=== PATIENT | male | born 1970 | race Caucasian/White ===

== ENCOUNTER 2016-10-10 13:45 | Observation (INO) | payer OTHER ==
[2016-10-10] VITALS (12 sets, daily range): BP systolic 115–136; BP diastolic 68–88; PULSE 63–97; RESP 16–20; O2SAT 95–100
[~2016-10-10] VITALS: Ht 188 cm; Wt 101.6 kg
[~2016-10-10 13:45] MED LIST: Dexamethasone 4 mg/mL Inj ONE; Glycopyrrolate 0.2 MG/ML 1mL Inj ONE; Neostigmine 1 mg/mL 10 mL Inj ONE; Ondansetron 2 mg/mL 2 mL Inj ONE; Propofol 10,000 mCg/mL 20 mL Inj ONE; Remifentanil 1 mg/3 mL Inj ONE; Rocuronium 10 mg/mL 5 mL Inj ONE; fentaNYL-PF 50 mCg/mL 2 mL Inj ONE
[2016-10-10] MEDS ORDERED: Lactated Ringer's 1,000 ML IV ONE ×2 (14:17→15:16)
--- NOTE | 2016-10-10 14:17 | PCM.HPANE ---
Patient Data Surgeon Admitting Provider: Attending Provider:Lexx Boyd MD Primary Care Physician:Dasha Other Provider:Julius Carolina Anesthesia Reason for Visit Lap Lorri Ht/WT & BMI Body Mass Index Allergies Coded Allergies: Penicillins (Verified Allergy, Intermediate, RASH, 10/10/16) Past Anesthesia History Anesthesia History: Denies:: Abnormal Airway, Difficult Intubation Diabetes History Hx Diabetes?: No MRSA MRSA: No Medications Hypertension Medication: No Home Meds Incl Beta Gema: No Active Scripts Polyethylene Glycol 3350 (Miralax)17 Gm Powd.pack17 Gm PO DAILY PRN For Constipation #1 BOTTLE Take as needed to promote smooth bowel movements while using narcotic pain meds. Hold for liquid stools. Prov:Alex Miranda MD 10/11/16 oxyCODONE 5 Mg Tablet5 Mg PO Q6 hours PRN For Moderate Pain #15 TABLET Prov:Alex Miranda MD 10/11/16 [Acetaminophen] (Tylenol)325 MG TABLET No Conflict [id number] Mg PO Q6H #30 Take every 6 hours to help control any pain. Prov:Alex Miranda MD 10/11/16 History History of ENT Problems?: No HEENT History: Denies:: Abnormal Airway Cataracts Difficult Intubation Dysphagia Glaucoma Hearing Problem Sinus Problem TMJ Denture Type: None Teeth Condition: Within Normal Limits Hx of Heart Problems?: No Cardiovascular History: Denies:: AICD Abdominal Aortic Aneurism Atrial Fibrillation Cardiac Surgery Chest Pain Congestive Heart Failure Coronary Artery Disease Edema Heart Murmur Hypertension Irregular Heartbeat Pacemaker Peripheral Vascular Rheumatic Fever Thrombophlebitis Valvular Heart Disease Hx of Respiratory Problem?: No Respiratory History: Denies:: Asthma COPD Chest Surgery Cough Dyspnea Emphysema Hemoptysis Oxygen Administration Pneumonia Pulmonary Embolism Tuberculosis Use of C-PAP Machine Use of Inhalers / NEBS Hx Neurologic Problems?: No Neurological History: Denies:: Alzheimer's Disease CVA Dementia Dizziness Headaches Multiple Sclerosis Parkinson's Disease Peripheral Neuropathy Seizures TIA Hx of GI Problems?: Yes Gastrointestinal History: Positive for:: Gall Bladder Disease Hx of Problems?: No HX of Peritoneal Dialysis: No Male Hx: Denies:: Prostate Problems Scrotal Mass Testicular Surgery Skin History: Denies:: History Skin Disorders? Pressure Ulcers Hx Musculoskeletal Problems?: No Hx of Psycho/Social Problems?: No Hx Surgeries?: Yes Hx Any Other Health Problems?: No Hx Diabetes: No Stop/Bang Treated for Sleep Apnea?: No Do You Have a CPAP Machine?: No EVELINA Risk Assessment: Low Risk, <3 Yes Risk Assessment Category Category 1A: Patient has history of documented sleep apnea, and HAS NOT received any narcotic, sedative or anesthesia administration during this stay. Category 1B: Patient has history of documented sleep apnea, and HAS received any narcotic , sedative or anesthesia administration during this stay Category 2: Patient has SUSPECTED Obstructive Sleep Apnea, and HAS received any narcotic , sedative or anesthesia administration during this stay. Category 3: Patient has SUSPECTED Obstructive Sleep Apnea and HAS NOT received narcotic, sedative or anesthesia administration during this stay. Category 4: Outpatient in Procedural Areas with known sleep apnea or who screen positive for High Risk via the STOP/BANG questionnaire. Exam Exam General Appearance: Alert, Oriented X3, Cooperative, No Acute Distress HEENT/AIRWAY: MP 2 Lungs: Clear to Auscultation, Normal Air Movement Heart: Exam Unremarkable, Regular Rate/Rhythm, No Murmurs/Rubs/Gallops Plan Impression Patient chart reviewed, patient interviewed and anesthestic plan with risks, benefits, and alternatives discussed, and informed consent obtained. ASA Physical Status: ASA2 Mod Systemic Disease Anesthetic Plan: GA Bene/Risks/Altern/Consents: Yes HP Complete Prior to Induction: Yes Ashish Sheikh MD Oct 10, 2016 14:17
[2016-10-10] MEDS ORDERED: diphenhydrAMINE 25 mg Capsule PO PRN (15:30)
[2016-10-10] MEDS ORDERED: Ondansetron 2 mg/mL 2 mL Inj IVPUSH PRN ×3 (15:30→19:30)
[2016-10-10] MEDS ORDERED: CeFAZolin 2 Gm/50 mL D5W Duplex Bag IV ONE (15:51)
[2016-10-10] MEDS: CeFAZolin Inj 2 GM in IV Premix 1 EACH IV ONE ×2 (16:15→16:46)
[2016-10-10] MEDS ORDERED: Lactated Ringer's 500 ML IV PRN (16:29)
[2016-10-10] MEDS ORDERED: Lactated Ringer's 1,000 ML IV SCH (16:29)
--- NOTE | 2016-10-10 16:29 | PCM.HPANE ---
Patient Data Surgeon Admitting Provider: Attending Provider:Lexx Boyd MD Primary Care Physician:Dasha Other Provider:Julius Carolina Anesthesia Reason for Visit Lap Lorri Ht/WT & BMI Body Mass Index Allergies Coded Allergies: Penicillins (Verified Allergy, Intermediate, RASH, 10/10/16) Past Anesthesia History Anesthesia History: Denies:: Abnormal Airway, Difficult Intubation Diabetes History Hx Diabetes?: No MRSA MRSA: No Medications Hypertension Medication: No Home Meds Incl Beta Gema: No History History of ENT Problems?: No HEENT History: Denies:: Abnormal Airway Cataracts Difficult Intubation Dysphagia Glaucoma Hearing Problem Sinus Problem TMJ Denture Type: None Teeth Condition: Within Normal Limits Hx of Heart Problems?: No Cardiovascular History: Denies:: AICD Abdominal Aortic Aneurism Atrial Fibrillation Cardiac Surgery Chest Pain Congestive Heart Failure Coronary Artery Disease Edema Heart Murmur Hypertension Irregular Heartbeat Pacemaker Peripheral Vascular Rheumatic Fever Thrombophlebitis Valvular Heart Disease Hx of Respiratory Problem?: No Respiratory History: Denies:: Asthma COPD Chest Surgery Cough Dyspnea Emphysema Hemoptysis Oxygen Administration Pneumonia Pulmonary Embolism Tuberculosis Use of C-PAP Machine Use of Inhalers / NEBS Hx Neurologic Problems?: No Neurological History: Denies:: Alzheimer's Disease CVA Dementia Dizziness Headaches Multiple Sclerosis Parkinson's Disease Peripheral Neuropathy Seizures TIA Hx of GI Problems?: Yes Hx of Problems?: No HX of Peritoneal Dialysis: No Male Hx: Denies:: Prostate Problems Scrotal Mass Testicular Surgery Skin History: Denies:: History Skin Disorders? Pressure Ulcers Hx Musculoskeletal Problems?: No Hx of Psycho/Social Problems?: No Hx Surgeries?: No Hx Diabetes: No Stop/Bang Treated for Sleep Apnea?: No Do You Have a CPAP Machine?: No Risk Assessment Category Category 1A: Patient has history of documented sleep apnea, and HAS NOT received any narcotic, sedative or anesthesia administration during this stay. Category 1B: Patient has history of documented sleep apnea, and HAS received any narcotic , sedative or anesthesia administration during this stay Category 2: Patient has SUSPECTED Obstructive Sleep Apnea, and HAS received any narcotic , sedative or anesthesia administration during this stay. Category 3: Patient has SUSPECTED Obstructive Sleep Apnea and HAS NOT received narcotic, sedative or anesthesia administration during this stay. Category 4: Outpatient in Procedural Areas with known sleep apnea or who screen positive for High Risk via the STOP/BANG questionnaire. Exam Exam General Appearance: Alert, Oriented X3, Cooperative, No Acute Distress HEENT/AIRWAY: MP 2 Lungs: Clear to Auscultation, Normal Air Movement Heart: Exam Unremarkable, Regular Rate/Rhythm, No Murmurs/Rubs/Gallops Plan Impression Patient chart reviewed, patient interviewed and anesthestic plan with risks, benefits, and alternatives discussed, and informed consent obtained. NPO per Anesth. Guidelines: Yes ASA Physical Status: ASA2 Mod Systemic Disease Anesthetic Plan: GA Bene/Risks/Altern/Consents: Yes HP Complete Prior to Induction: Yes Other Discussed GETA. All questions were answered and he agrees to proceed. Tunde Albarran MD Oct 10, 2016 15:27
[2016-10-10] MEDS ORDERED: Dexamethasone 4 mg/mL Inj IVPUSH PRN (16:30)
[2016-10-10] MEDS ORDERED: Phenylephrine 10,000 mCg/mL Inj IVPUSH PRN (16:30)
[2016-10-10] MEDS ORDERED: fentaNYL-PF 50 mCg/mL 2 mL Inj IVPUSH PRN (16:30)
[2016-10-10] MEDS ORDERED: MetoCLOpramide 5 mg/mL 2 mL Inj IVPUSH PRN ×2 (16:30→19:30)
[2016-10-10] MEDS ORDERED: HYDROmorphone 1 mg/mL Inj IVPUSH PRN ×2 (16:30→19:30)
[2016-10-10] MEDS ORDERED: EPHEDrine Sulfate 50 mg/mL Inj IVPUSH PRN (16:30)
--- NOTE | 2016-10-10 16:57 | HP ---
[address] [address] HISTORY AND PHYSICAL PATIENT: HOLA VELASQUEZ : 1970 MR#: [id number] ADMIT: 10/10/2016 JOB ID: [id number] CHIEF COMPLAINT/IDENTIFICATION: A 45-year-old man with acute cholecystitis. HISTORY OF PRESENT ILLNESS: The patient was awakened by right upper quadrant pain around one this morning. In retrospect he has had biliary colic type symptoms in the past. There is no history of jaundice, acholic stool, nor tea-colored urine. The pain has been persistent and he went to urgent care where an ultrasound demonstrates findings consistent with cholecystitis. Otherwise GI review of systems is negative. PAST MEDICAL HISTORY: Eye surgery as a child. MEDICATIONS: None. ALLERGIES: PENICILLIN (REACTION ONLY FOR RASH A CHILD). FAMILY HISTORY: Breast cancer. REVIEW OF SYSTEMS: Negative after complete review of systems. PHYSICAL EXAMINATION: Vital signs recorded in the chart. He is uncomfortable, in no acute distress. Lungs are clear. Heart sounds are regular. Abdomen is soft, with right upper quadrant tenderness to palpation, but no real Wright sign. No groin hernias. Extremities are without edema. Neurologically he is intact. IMAGING: Abdominal ultrasound demonstrated sludge and stones in the gallbladder with a thickened gallbladder wall at 4.2 mm. LABORATORY DATA: White count is 14. Liver function tests are normal. Other labs are unremarkable, except for mild elevation of his blood sugar. IMPRESSION AND PLAN: Probable cholecystitis. This is somewhat mild. I have offered him the opportunity of going onto oral antibiotics and being placed on the elective schedule or of being admitted for surgery today. As he has ongoing pain despite pain medications given in Urgent Care, he would like to proceed, and I think that this and the fact that he has an elevated white count suggest he has acute cholecystitis. We will get him onto the OR schedule. He last had something to eat last night. I will give him perioperative Ancef as his penicillin allergy was distant the reaction seemed relatively mild.
[2016-10-10] MEDS ORDERED: Bupivacaine-MPF 0.5% W/EPI 30 mL Inj INJ ONE (17:01)
--- NOTE | 2016-10-10 19:22 | PCM.ANEP1 ---
Post Anesthesia PACU Phase 1 Assessment Vital Signs Vital Signs Date Time Temp Pulse Resp B/P Pulse Ox O2 Delivery O2 Flow Rate FiO2 10/10/16 15:25 36.8 97 16 136/88 99 Room Air Anesthetic Administered: GA Level of Alertness: Sleepy, easy to arouse WALTER's with Equal Strength: Yes Pain: No Nausea or Vomiting: No CV Function & Hydration Stable: Yes Airway Device: Oxygen Delivery: Simple Mask Lungs: Clear to Auscultation, Normal Air Movement Dermatome Level: Full Sensation PACU Phase 2 Assessment Complications: No Follow up Care: N/A Patient Instructions Provided: N/A Tunde Albarran MD Oct 10, 2016 19:22
[2016-10-10] MEDS: D5 0.45% NaCl + KCl 20 mEq/L 1,000 ML IV SCH (19:26)
[2016-10-10] MEDS ORDERED: Polyethylene Glycol (PEG) 17 Gm Powder PO PRN (19:30)
--- NOTE | 2016-10-10 19:46 | OP ---
[address] [address] OPERATIVE REPORT PATIENT: HOLA VELASQUEZ : 1970 MR#: [id number] ADMIT: 10/10/2016 JOB ID: [id number] DATE OF SURGERY: 10/10/2016 PREOPERATIVE DIAGNOSIS(ES): Acute cholecystitis. POSTOPERATIVE DIAGNOSIS(ES): Acute cholecystitis. PROCEDURE: Laparoscopic cholecystectomy, with attempted intraoperative cholangiogram. SURGEON: Lexx Boyd MD and Marco Miranda TRUCK BENCH MECHANIC: Miguel Briones MS3 INDICATIONS: A 45-year-old man who presents with signs and symptoms consistent with acute cholecystitis. FINDINGS: 1. Construction Administrator was medically necessary for camera operation and retraction. 2. The patient had acute on chronic cholecystitis. 3. Cholangiogram was abandoned as described below. PROCEDURE: The patient brought to the operating room. SCOAP protocol was followed. General anesthetic was administered. He received perioperative Ancef without cross-reactivity to his reported penicillin allergy. Surgical time-out was performed. The abdomen was prepped and draped in sterile fashion. We obtained access with a Veress needle. CO2 pneumoperitoneum was established. We placed four ports in standard fashion. The gallbladder was clearly inflamed. We had to decompress the gallbladder with a needle to enable ourselves to grasp and retract it cephalad. There was a fair amount of chronic and acute inflammation around the infundibulum. We cleared this out with cautery and blunt dissection. The gallbladder was relatively intrahepatic and there was a great deal of inflammation. We stayed on the gallbladder. We developed the window of the triangle of Calot, staying right on the gallbladder, and identified where the cystic artery entered the gallbladder. We did get a hole in the gallbladder and spilled a few small stones, most of which were picked up. In developing the exposure of the liver plate, we also did make another hole in the gallbladder and spilled some stones, most of which were immediately recovered, though some would be later recovered at the end of the procedure. Having identified the cystic duct going into the gallbladder, I did have some concerns about a possible short cystic duct given the inflammation of the triangle of Calot. We attempted a cholangiogram, going through a hole that had been made at the cystic duct/gallbladder junction, and we did expand this; however, we were unable to pass the catheter into the cystic duct despite several efforts. At this point, because of my concern about a possible short cystic duct and the overall clinical picture, I decided to abandon the cholangiogram. We placed two clips on the patient's side of the cystic duct, taking care to relax tension on the infundibulum as we placed our clips, to avoid possibly impinging on the common duct. We now divided the cystic duct with scissors and used electrocautery to stay right on the gallbladder and take it out of the liver bed. The gallbladder was relatively intrahepatic. As we removed the gallbladder there was spillage of a dozen or more stones which were recognized after we got the gallbladder out of liver bed and placed in a bag and isolated. We then irrigated with a liter of saline, removing most of the stones that we could see. We now removed the gallbladder from the abdomen in the bag without any wound contamination. We replaced our ports and proceeded with further irrigation with another 2 L and this allowed us to flush out all stones from behind the liver and in the subhepatic space, retrieving them all with a gallstone scoop, and eventually irrigation was clear. Having removed all stone debris, we checked our liver bed again. Hemostasis was good. There was no evidence of a bile leak. I elected not to leave a drain. Ports were removed after removing all of our irrigation. Wounds were closed with absorbable suture, including a [id number] 0-Vicryl at the subxiphoid 10 mm port, and the skin was closed with absorbable suture. At the time of this dictation, the patient is awakened from anesthesia and will be extubated. The plan will be to obtain liver function tests tomorrow and if his bilirubin is rising we will get an MRCP. The findings were discussed with the patient's .
[2016-10-11 00:21] VITALS: BP 117/74; PULSE 60; RESP 16; O2SAT 96
--- NOTE | 2016-10-11 03:11 | NUR ---
PO Transfer Patient able to slide into bed. Oriented to room, and call light. Family at bed side. Denies pain at that time, 2/ at this time. Motrin given, patient instructed to report any increase in pain before out of control. Sleeping comfortably at this time.
[2016-10-11] MEDS: D5 0.45% NaCl + KCl 20 mEq/L 1,000 ML IV SCH (03:26)
[2016-10-11 07:18] LABS: BASOPHILS % (AUTO) 0.1 % (0-3); EOSINOPHILS % (AUTO) 0 % (0-5); MONOCYTES % (AUTO) 9.8 % (4-12); Mean Corpuscular Hemoglobin 31.6 pg (27.0-35.0); Mean Corpuscular Volume 93.1 fL (81-100); NEUTROPHILS % (AUTO) 79.2 % (40-74); Platelet Count 253 bil/L (150-400)
[2016-10-11 07:44] VITALS: BP 101/60; PULSE 54; RESP 18; O2SAT 99
[2016-10-11 09:13] VITALS: PULSE 58; RESP 16; O2SAT 97
--- NOTE | 2016-10-11 09:41 | PCM.DISURG ---
Surgical Discharge Instruction Date of Service Oct 11, 2016 Dates of Hospitalization Date of Hospital Admission Oct 10, 2016 at 20:21 Providers Admitting Physician: Lexx Boyd MD Primary Care Physician: Nopcp Attending Physician: Lexx Boyd MD Discharge Diagnosis Post Operative diagnosis Acute calculous cholecystitis. Diet Discharge Diet: No restrictions Activity Discharge Activity-General: Be up and about, Activity as pain allows, No lifting >15 pounds for 2 weeks, No driving while taking narcotic Dressing and Incisional Care Dressing Care: Allow Steri Stripes to fall off, Remove outer dressing after 24 hrs Hygiene: May shower after (24 hours), DO NOT soak incision under water, NO bathtub, hot tub or whirlpool Follow Up Plan Follow Up Plan Follow up in the general surgery clinic in 2 weeks. Call to ensure you have an appointment. We will repeat your labs at that time. Call at any time with questions or concerns and please let us know if you are not feeling well. Call your provider for: Fever, Chills, Increasing abdominal pain, Nausea, Vomiting, Wound redness, Discharge @ incision, pus discharge Alex Miranda MD Oct 11, 2016 09:41
[2016-10-11] MEDS ORDERED: Acetaminophen PO (09:43)
[2016-10-11] MEDS ORDERED: OXYC5TAB72 PO (09:43)
[2016-10-11] MEDS ORDERED: POLY17PO6 PO (09:43)
--- NOTE | 2016-10-11 10:27 | PCM.DC.SUR ---
Discharge Summary Date of Service: Oct 11, 2016 Date of Hospital Admission: Oct 10, 2016 at 20:21 Date of Discharge: October 11, 2016 Diagnosis at Time of Discharge Acute calculous cholecystitis Problems: Operation Laparoscopic cholecystectomy. Brief History and Physical: This is a 45 year old male who presented with 24 hours of RUQ, elevated WBC of 14k, and an abdominal US demonstrating Abdominal sludge and stones in the gallbladder with a thickened gallbladder wall at 4.2 mm. This is consistent with acute calculous cholecystitis and he was therefore given the option to proceed to the operating room for a laparoscopic cholecystectomy. After a discussion of the risks, benefits, and alternatives, he elected to move towards surgery. Hospital Course: The patient underwent successful and uncomplicated laparosocpic cholecystectomy. Following this, he recovered from a general anesthetic in the PACU and was then transferred to the general surgery floor for intensive nursing care and observation overnight. His diet was advanced with excellent tolerance and his pain was controlled on a PO only multimodal pain regimen. On the morning of POD#1, his WBC had downtrended to 11k and his LFTs were normal with a T.bili of 0.2. He denied abdominal pain, nausea, vomiting, or other concern. At this point, he was deemed to have met or exceeded all criteria for a safe discharge to home. The patient and his were given strict return precautions and expressed their understanding. Disposition: Home Follow-up Plan: In the general surgery clinic in 2 weeks. ([Acetaminophen]) 325 MG TABLET 650 MG PO Q6H Take every 6 hours to help control any pain. Polyethylene Glycol 3350 (Miralax) 17 Gm Powd.pack 17 GM PO DAILY PRN PRN For Constipation Take as needed to promote smooth bowel movements while using narcotic pain meds. Hold for liquid stools. oxyCODONE (oxyCODONE) 5 Mg Tablet 5 MG PO Q6 hours PRN PRN For Moderate Pain Alex Miranda MD Oct 11, 2016 10:27
--- NOTE | 2016-10-11 12:23 | NUR ---
Discharge note- Patient denies increase incisional pain. Encouraged patient to take pain med prior to discharge to prevent discomfort. Tolerating diet and fluids well without nausea. Discharged to home with family and personal belongings.
--- NOTE | 2016-10-11 13:26 | NUR ---
Social Work: Screening/Discharge/Multidisciplinary Rounds D: EMR reviewed. Pt is a 45 y/o male admitted for lap fatuma per H&P. Pt's insurance is [employer]. KWAN is sister Naye Martin [phone]. Per multidisciplinary rounds, no SW needs identified. Pt medically stable for discharge home today via POV. No SW needs identified. No MD orders received. A: Pt who is independent at baseline P: Pt discharged home with family via POV. No SW needs identified. No MD orders received. GRACY Jefferson
--- NOTE | 2016-10-14 09:54 | PATH ---
SURGICAL PATHOLOGY Attending Physician:Lexx Boyd MD CASE STATUS: Signed Out PATIENT NAME: HOLA VELASQUEZ PID: [id number] : 1970 DATE COLLECTED:10/10/2016 00:00 SPECIMEN: Gallbladder CLINICAL HISTORY: CHOLECYSTITIS 1). GALLBLADDER WITH CONTENTS FINAL DIAGNOSIS: Gallbladder and Contents: - Cholelithiasis. - Gallbladder with denuded mucosa. - No significant acute and chronic inflammation. - Negative for dysplasia and malignancy. ICD10: K80. GROSS DESCRIPTION: The specimen is received in formalin, labeled with the patient's name, sublabeled as gallbladder and contents, and consists of an opened gallbladder (length-10.7 cm, diameter-3.2 cm) with a patent cystic duct. No lymph nodes are identified. The serosa is baker-pink smooth and shiny. The mucosa is rizo-green smooth and flat. The wall is up to 0.2 cm thick. The contents are also submitted and consist of multiple bright yellow solid firm multifaceted calculi (9.5 x 7.5 x 1.3 cm in aggregate, ranging 0.1 x 0.1-0.1 cm-0.7 x 0.6 x 0.5 cm) with cadence crystalline cut surfaces. No nodules, masses or lesions are identified. Section code: (A) gallbladder, cystic duct resection margin, 2 serial sections from the body, longitudinal section from the fundus. 10/11/16 ICD-9 CODES: CPT CODES: 1: 72017 Electronically Signed Out Brian Sterling MD [facility] Pathology [facility] [address], [place] [address] Technical component performed at [facility], [facility] [address], [place], [address]
== END 2016-10-11 11:47 | disposition home or self-care (01) ==
LOC: SAS 13:45 → OSC 20:21 → INTOOBSV 20:21
PROVIDERS: ADMIT Surgery; ATTEND Surgery
DX: K80.20 Calculus of gallbladder without cholecystitis without obstruction (principal)
CPT/HCPCS: 36415; 47563; 80053; 85025; 94640; G0378; G0379; J0690; J1100; J2250; J2405; J2710; J3010; J7120

== ENCOUNTER 2016-10-17 14:43 | Day surgery (SDC) | payer OTHER ==
[~2016-10-17] VITALS: Ht 188 cm; Wt 97.0 kg
[~2016-10-17 14:43] MED LIST changes: +Acetaminophen PO; -Dexamethasone 4 mg/mL Inj ONE; -Glycopyrrolate 0.2 MG/ML 1mL Inj ONE; -Neostigmine 1 mg/mL 10 mL Inj ONE; +OXYC5TAB72 PO; -Ondansetron 2 mg/mL 2 mL Inj ONE; +POLY17PO6 PO; -Propofol 10,000 mCg/mL 20 mL Inj ONE; -Remifentanil 1 mg/3 mL Inj ONE; -Rocuronium 10 mg/mL 5 mL Inj ONE; -fentaNYL-PF 50 mCg/mL 2 mL Inj ONE
[2016-10-17] MEDS ORDERED: fentaNYL-PF 50 mCg/mL 2 mL Inj ONE (14:44)
[2016-10-17] MEDS ORDERED: Propofol 10,000 mCg/mL 20 mL Inj ONE (14:44)
[2016-10-17 16:19] VITALS: BP 119/78; PULSE 85; RESP 20; O2SAT 96
[2016-10-17] MEDS ORDERED: Lactated Ringer's 1,000 ML IV ONE ×2 (16:58)
[2016-10-17 17:42] VITALS: BP 112/77; PULSE 71; RESP 16; O2SAT 95
--- NOTE | 2016-10-17 17:45 | PCM.ANEP1 ---
Post Anesthesia PACU Phase 1 Assessment Vital Signs Vital Signs Date Time Temp Pulse Resp B/P Pulse Ox O2 Delivery O2 Flow Rate FiO2 10/17/16 16:19 37 85 20 119/78 96 Room Air Anesthetic Administered: MAC Level of Alertness: Awake, talking WALTER's with Equal Strength: Yes Pain: No Nausea or Vomiting: No CV Function & Hydration Stable: Yes Airway Device: Oxygen Delivery: Room Air Lungs: Clear to Auscultation Dermatome Level: Full Sensation PACU Phase 2 Assessment Complications: No Follow up Care: N/A Patient Instructions Provided: N/A Tunde Albarran MD Oct 17, 2016 17:45
[2016-10-17] MEDS ORDERED: Lactated Ringer's 1,000 ML IV SCH (17:46)
--- NOTE | 2016-10-17 17:46 | PCM.HPANE ---
Patient Data Surgeon Admitting Provider: Attending Provider:Sabino Petty MD Primary Care Physician:Dasha Other Provider:Julius Carolina Anesthesia Reason for Visit Common Bile Duct Stone Ht/WT & BMI Height (Feet): 6 Height (Inches): 2 Weight (Kilograms): 97 Body Mass Index 27.00 Allergies Coded Allergies: Penicillins (Verified Allergy, Intermediate, RASH, 10/10/16) Past Anesthesia History Anesthesia History: Denies:: Abnormal Airway, Anesthesia Reactions, Difficult Intubation, Fam Anesthesia Reaction, Fam Malignant Hypertherm, Malignant Hyperthermia Diabetes History Hx Diabetes?: No MRSA MRSA: No Medications Active Scripts Polyethylene Glycol 3350 (Miralax)17 Gm Powd.pack17 Gm PO DAILY PRN For Constipation #1 BOTTLE Take as needed to promote smooth bowel movements while using narcotic pain meds. Hold for liquid stools. Prov:Alex Miranda MD 10/11/16 oxyCODONE 5 Mg Tablet5 Mg PO Q6 hours PRN For Moderate Pain #15 TABLET Prov:Alex Miranda MD 10/11/16 [Acetaminophen] (Tylenol)325 MG TABLET No Conflict Usmse210 Mg PO Q6H #30 Take every 6 hours to help control any pain. Prov:Alex Miranda MD 10/11/16 History History of ENT Problems?: No HEENT History: Denies:: Abnormal Airway Cataracts Difficult Intubation Dysphagia Hearing Problem Sinus Problem TMJ Denture Type: None Teeth Condition: Within Normal Limits Hx of Heart Problems?: No Cardiovascular History: Denies:: AICD Abdominal Aortic Aneurism Atrial Fibrillation Cardiac Surgery Chest Pain Congestive Heart Failure Edema Heart Murmur Hypertension Irregular Heartbeat Pacemaker Rheumatic Fever Thrombophlebitis Valvular Heart Disease Hx of Respiratory Problem?: No Respiratory History: Denies:: Asthma COPD Chest Surgery Cough Dyspnea Emphysema Hemoptysis Oxygen Administration Pneumonia Pulmonary Embolism Tuberculosis Use of C-PAP Machine Hx Neurologic Problems?: No Neurological History: Denies:: Alzheimer's Disease CVA Dementia Dizziness Headaches Multiple Sclerosis Parkinson's Disease Seizures Hx of GI Problems?: Yes Hx of Problems?: No HX of Peritoneal Dialysis: No Male Hx: Denies:: Prostate Problems Scrotal Mass Testicular Surgery Skin History: Denies:: History Skin Disorders? Pressure Ulcers Hx Musculoskeletal Problems?: No Musculoskeletal History: Denies:: Fibromyalgia Joint Replacement Hx of Psycho/Social Problems?: No Psycho Social History: Denies:: Anxiety Hx Depression Hx Surgeries?: Yes (DONALD, EYE SURGERY, BROKEN NOSE) Hx Any Other Health Problems?: Yes Hx Diabetes: No Hx Alcohol Use: Yes (OCCASIONAL1-2 BEERS A COUPLE DAYS A WEEK) Stop/Bang Treated for Sleep Apnea?: No Do You Have a CPAP Machine?: No S-Snoring: Do You Snore Loudly: Yes T-Tired: feel tired, fatigued: No O-Obsered: Observed not breath: Yes P-Blood Pressure: treated: No B- Body Mass Index > 35 kg/m2: Yes A- Age over 50: No N- Neck Large Circumference: Yes G- Gender Male: Yes EVELINA Total Score: 5 EVELINA Category 2: Yes Risk Assessment Category Category 1A: Patient has history of documented sleep apnea, and HAS NOT received any narcotic, sedative or anesthesia administration during this stay. Category 1B: Patient has history of documented sleep apnea, and HAS received any narcotic , sedative or anesthesia administration during this stay Category 2: Patient has SUSPECTED Obstructive Sleep Apnea, and HAS received any narcotic , sedative or anesthesia administration during this stay. Category 3: Patient has SUSPECTED Obstructive Sleep Apnea and HAS NOT received narcotic, sedative or anesthesia administration during this stay. Category 4: Outpatient in Procedural Areas with known sleep apnea or who screen positive for High Risk via the STOP/BANG questionnaire. Exam Exam Vital Signs Vital Signs Date Time Temp Pulse Resp B/P Pulse Ox O2 Delivery O2 Flow Rate FiO2 10/17/16 16:19 37 85 20 119/78 96 Room Air General Appearance: Alert HEENT/AIRWAY: MP 2 Plan Impression Patient chart reviewed, patient interviewed and anesthestic plan with risks, benefits, and alternatives discussed, and informed consent obtained. NPO per Anesth. Guidelines: Yes ASA Physical Status: ASA2 Mod Systemic Disease Anesthetic Plan: MAC Bene/Risks/Altern/Consents: Yes HP Complete Prior to Induction: Yes Tunde Albarran MD Oct 17, 2016 16:40
[2016-10-17] MEDS ORDERED: Ondansetron 2 mg/mL 2 mL Inj IVPUSH PRN (17:50)
[2016-10-17] MEDS ORDERED: MetoCLOpramide 5 mg/mL 2 mL Inj IVPUSH PRN (17:50)
[2016-10-17 17:52] VITALS: BP 116/75; PULSE 75; RESP 16; O2SAT 96
[2016-10-17 18:02] VITALS: BP 118/71; PULSE 72; RESP 16; O2SAT 96
--- NOTE | 2016-10-17 18:58 | DRSVH ---
PROCEDURE: X-RAY E.R.C. BILIARY DUCTS ([id number]) INDICATIONS: CBD STONE TECHNIQUE: Fluoroscopic spot films were acquired by the gastroenterology service during ERCP procedu re. COMPARISON: None. FINDINGS: Intraprocedural fluoroscopic images demonstrate endoscopic balloon placed through the bile duct. A questionable filling defect is present centrally. IMPRESSION: Questionable filling defect at the central bile duct. Please see detailed description of the study from the endoscopist. Dictated by: Amada Hooper M.D. on 10/17/2016 at 18:55 Approved by: Amada Hooper M.D. on 10/17/2016 at 18:56
--- NOTE | 2016-10-17 21:10 | ENDO ---
[address] [address] ENDOSCOPY PROCEDURE PATIENT: TUNDE VELASQUEZ : 1970 MR#: [id number] ADMIT: 10/17/2016 JOB ID: [id number] DATE: 10/17/2016 PROCEDURE: Endoscopic retrograde cholangiopancreatography with biliary sphincterotomy and stone extraction. INDICATIONS: A 45-year-old male with a recent spell of biliary colic. He had a cholecystectomy on October 10. Subsequently, his liver tests were abnormal and an MRCP was accomplished which demonstrated the presence of a nondilated biliary system but an obvious 4 mm stone within the common bile duct. ERCP was pursued. Currently he is very asymptomatic. EQUIPMENT: [email or web address]. SEDATION: Monitored anesthesia as provided by Dr. Tunde Albarran. COMPLICATIONS: None identified. PROCEDURE INFORMATION: After the risks and benefits were explained, the patient was placed into the prone position. Sedation was achieved. The scope was then introduced into the mouth through the bite block and advanced under indirect visualization to stomach. From there, the scope was guided into the second portion of the duodenum. The major papilla was seen and was noted to be emanating a normal contreras colored bile. Using the 20 mm Olympus sphincterotome we selectively cannulated the biliary tree with the 025 short straight VisiGlide wire. Initial contrast injection demonstrated a small stone in the mid CBD consistent with the MRCP findings. Biliary sphincterotomy was accomplished. We then swapped out for the 8.5 mm Olympus stone extraction balloon tipped catheter with contrast port below. The duct was not dilated so we hypoinflated the balloon to perhaps somewhere in the 6 mm range. We were ultimately able to engage the stone with the balloon and the deliver it into the duodenum. Photograph was taken. This appeared consistent with an irregular shaped hard yellow to white calcified stone. Further sweeps of the duct from high up in the CHD all the way down did not yield any further debris and there was free-flowing nonpurulent bile coming through the sphincterotomy site. During our cholangiograms I did not appreciate any suggestion of a leak. Wire and catheter were retrieved. The scope was brought back into the stomach. Excess fluid and air was removed. The scope was then withdrawn from the patient who tolerated the procedure well. FINDINGS: See above. There was evidence of some multifocal erosive change all throughout the duodenum. The patient had a small sliding hiatal hernia and during the case there were numerous hiccups. I suspect this induced a very small, self-limited Nisa-Salas tear. When we were exiting the stomach, I could see there was a small amount of heme right at the level of the GE junction. No sustained bleeding. No intervention was required. The pancreas was preferentially avoided. The stones seen at MRCP confirmed with initial contrast injection. Biliary sphincterotomy was generous and seemed adequate with free-flowing contreras bile. Using the balloon tipped catheter we delivered the stone as described above into the duodenum. Subsequent sweeping of the duct did not yield any further debris. ENDOSCOPIC DIAGNOSES: 1. Choledocholithiasis status post biliary sphincterotomy and stone extraction. 2. Erosive duodenopathy. 3. Hiatal hernia. 4. A Nisa-Salas tear superimposed on possible esophagitis. RECOMMENDATIONS: 1. NPO for 4 hours. 2. Then clear liquids this evening. 3. Diet can be advanced as tolerated tomorrow. 4. Repeat liver tests in 10-14 days. 5. I would recommend at least a short course of omeprazole or pantoprazole treatment considering the hiatal hernia and the Nisa-Salas tear. 6. I think it would be reasonable to repeat a diagnostic EGD in some 4-6 weeks to ensure all has healed and that there is no sustained ongoing erosive features, ulceration, etc. that would mandate further therapy.
== END 2016-10-17 23:59 | disposition home or self-care (01) ==
LOC: END 14:43
PROVIDERS: ATTEND Internal Medicine Gastroenterology
DX: K80.50 Calculus of bile duct without cholangitis or cholecystitis without obstruction (principal); K44.9 Diaphragmatic hernia without obstruction or gangrene; K22.6 Gastro-esophageal laceration-hemorrhage syndrome; R10.13 Epigastric pain; R10.11 Right upper quadrant pain; N40.1 Benign prostatic hyperplasia with lower urinary tract symptoms; N13.8 Other obstructive and reflux uropathy; E66.01 Morbid (severe) obesity due to excess calories; Z68.41 Body mass index [BMI] 40.0-44.9, adult

== ENCOUNTER → 2016-12-01 | Day surgery (SDC) | payer OTHER ==
[~2016-12-01] VITALS: Ht 188 cm; Wt 99.8 kg
[~2016-12-01] MED LIST changes: +CARB15DR2 OP; +OMEP20CA11 PO; +OXYC-530 PO; -OXYC5TAB72 PO; +Sodium Chloride LOK Flush 10 mL Syringe IV PRN; +fentaNYL-PF 50 mCg/mL 2 mL Inj IVPUSH PRN
[2016-12-01 11:08] VITALS: BP 121/84; PULSE 66; RESP 16; O2SAT 96; O2SAT 98
[2016-12-01] MEDS: 0.9% Sodium Chloride 1,000 ML IV PRN ×3 (11:16→11:56)
[2016-12-01 12:02] VITALS: BP 113/73; PULSE 68; RESP 12; O2SAT 92
[2016-12-01 12:10] VITALS: BP 91/68; PULSE 68; RESP 14; O2SAT 97
[2016-12-01 12:24] VITALS: BP 108/69; PULSE 70; RESP 16; O2SAT 96
--- NOTE | 2016-12-01 22:02 | ENDO ---
[address] [address] ENDOSCOPY PROCEDURE PATIENT: HOLA VELASQUEZ : 1970 MR#: [id number] ADMIT: 12/01/2016 JOB ID: [id number] DATE OF SERVICE: 12/01/2016 PROCEDURE: Esophagogastroduodenoscopy with biopsy. INDICATIONS: A 45-year-old male with a recent ERCP. At that ERCP, he had significant duodenal erosions and what looked like inflammation and a Nisa-Salas tear that had been induced by the endoscopic procedure itself. He has been on PPI since then and does not have problems with any pyrosis any longer. He still has some actual regurgitation-type symptoms. Overall, symptomatically much improved. Repeat scope is pursued today to evaluate for mucosal healing. EQUIPMENT: [id number]. SEDATION: 4 mg Versed and 100 mcg fentanyl. COMPLICATIONS: None identified. PROCEDURE INFORMATION: After the risks and benefits were explained, written and verbal informed consent was obtained, the patient was brought into the endoscopy suite and placed into the left lateral decubitus position. Sedation was achieved using the above-stated medications with the addition of oxygen via nasal cannula. The scope was introduced into the mouth through the bite block and advanced to the 2nd portion of the duodenum. The scope was slowly withdrawn to carefully examine the mucosa for any defects or lesions. Retroflexed views were accomplished in the stomach. The stomach was decompressed. The scope removed from the patient who tolerated the procedure well. FINDINGS: 1. Duodenum. No further erosions, ulcers or significant mucosal pathology appreciated throughout. 2. Stomach: No ulcers, mass lesions, or outlet obstruction. Retroflexed views of the LES were unremarkable. Mucosa was largely unremarkable throughout. 3. Esophagus: The squamocolumnar junction correlated with the top of the gastric folds. The GEJ was at about 40 cm from the incisors. However, there was still evidence of LA grade A erosive esophagitis in two areas and then a 3rd area where it may represent some healed esophagitis versus a very short tongue of Thomas's. This area was targeted for histopathology. This would be C0, M0.5. Remainder of the esophagus was unremarkable. There was a benign-appearing inlet patch just below the UES. ENDOSCOPIC DIAGNOSES: 1. Subtle sliding hiatal hernia (not mentioned above). 2. Mulhall grade A erosive esophagitis. 3. Irregular Z-line--biopsied. RECOMMENDATIONS: 1. Await histopathology. 2. Continue anti-reflux therapy for now. 3. Follow up in GI clinic in the next 6-8 weeks for overall clinical response.
--- NOTE | 2016-12-02 17:34 | PATH ---
SURGICAL PATHOLOGY Attending Physician:Josr aCtalan CASE STATUS: Signed Out PATIENT NAME: HOLA VELASQUEZ PID: [id number] : 1970 DATE COLLECTED:12/01/2016 21:52 SPECIMEN: Esophagus, Biopsy CLINICAL HISTORY: 1). GE JUNCTION BIOPSY FINAL DIAGNOSIS: 1.GASTROESOPHAGEAL JUNCTION, BIOPSY: COLUMNAR MUCOSA WITH CHRONIC ACTIVE INFLAMMATION. Negative for intestinal metaplasia, dysplasia or malignancy. ICD10 K20.9 GROSS DESCRIPTION: The specimen is received in one formalin filled container labeled with the patient's name, sublabeled " GEJ " and consists of an extremely tiny less than 0.1 CM portion of tissue which is entirely submitted in one cassette. 12/01/2016DC MICRO DESCRIPTION: See diagnosis. ICD-9 CODES: CPT CODES: 1: 33496 Electronically Signed Out Darren Wiseman MD, Ph.D. [facility] [address], [place] [address] Technical component performed at [facility], [facility] [address], [address]
== END | disposition home or self-care (01) ==
LOC: END 00:29
PROVIDERS: ATTEND Internal Medicine Gastroenterology
DX: K22.10 Ulcer of esophagus without bleeding (principal); K44.9 Diaphragmatic hernia without obstruction or gangrene
CPT/HCPCS: 43239; G0500; J2250; J3010; J7030